=== PATIENT | male | born 1980 | race Caucasian/White ===

== ENCOUNTER 2018-10-05 04:33 | Emergency (ER) | payer OTHER ==
[~2018-10-05] VITALS: Ht 188 cm; Wt 104.3 kg
[2018-10-05 04:40] VITALS: BP_SYST 134
[2018-10-05] MEDS ORDERED: LIDOCAINE 1% 10 MG/ML, 20 ML MDV IJ ONE (06:00)
[2018-10-05 07:25] VITALS: BP_SYST 134
[2018-10-05] MEDS ORDERED: BACITRACIN 1 GM OINT TP ONE (07:25)
== END 2018-10-05 07:25 | disposition home or self-care (01) ==
LOC: SED 04:33
DX: S02.2XXA Fracture of nasal bones, initial encounter for closed fracture (principal); S01.21XA Laceration without foreign body of nose, initial encounter; S01.511A Laceration without foreign body of lip, initial encounter; S01.81XA Laceration without foreign body of other part of head, initial encounter; W01.198A Fall on same level from slipping, tripping and stumbling with subsequent striking against other object, initial encounter; Y93.89 Activity, other specified; Y92.89 Other specified places as the place of occurrence of the external cause; Y99.8 Other external cause status
CPT/HCPCS: 12013; 70450; 99284; J2001